=== PATIENT | female | born 1950 | race Caucasian/White ===

== ENCOUNTER 2019-08-16 23:04 | Inpatient (IN) | payer BC, MEDICARE ==
--- NOTE | 2019-08-16 23:32 | ED ---
Psychiatric Complaint - HPI Summary HPI Summary: 68 year old female presents to the ED accompanied by police. THIS IS A LEVEL 5 CAVEAT DUE TO AMS. Per police, police was called after patient threatened suicide by holding a knife to her chest. Patient states that she is not suicidal , just upset. Patient was restrained by her granddaughter's boyfriend, who wrestled the knife out of her hand. Police handcuffed her upon arrival. Per patient, she has never had any prior suicidal attempts. Patient reports homicidal ideation tonight because she was so mad. She has a cough and sore throat, which started several weeks ago after she was intubated. Her granddaughter recently had strep throat. She denies recent fever, chills, or shortness of breath. On 08/08/19, patient had hypertensive encephalopathy, resulting in a seizure and then cardiac arrest. She was intubated until 08/09. PMHx of bipolar disease, arthritis, osteoporosis, hypothyroidism, breast cancer , and emphysema. Patient is a former smoker. She has not drank alcohol for many years. No history of chronic sleep disturbances. Patient lives in a safe home environment, with her daughter. - History Of Current Complaint Chief Complaint: EDMentalHealth Time Seen by Provider: 08/16/19 23:06 Hx Obtained From: Patient, Other: - police Hx From Patient Unobtainable Due To: Altered Mental Status ?: No Onset/Duration: Sudden Onset, Lasting Minutes Severity Initially: Severe Severity Currently: None Character: Manic, Frustrated Aggravating Factor(s): Nothing Associated Signs And Symptoms: Positive: Hostile Has Suicidal: Reports: Thoughts - although she denies them now, Demonstrates Gesture Has Homicidal: Reports: Thoughts - reports wanting to hurt family members - Allergies/Home Medications Allergies/Adverse Reactions: Allergies Allergy/AdvReac Type Severity Reaction Status Date / Time Penicillins Allergy Hives Verified 08/16/19 23:10 Home Medications: Home Medications Acetaminophen [Tylenol] 650 mg PO DAILY 08/17/19 [History Confirmed 08/17/19] Aspirin 81 mg CHEW TAB* [Aspirin Low Dose TAB*] 81 mg PO DAILY 08/17/19 [ History Confirmed 08/17/19] Calcium Carbonate/Vitamin D3 [Calcium 600+D High Potenc] 1 tab PO DAILY [History Confirmed 08/17/19] Diclofenac Sodium EC TAB* [Voltaren EC TAB*] 75 mg PO BID PRN 08/17/19 [History Confirmed 08/17/19] Levothyroxine TAB* [Synthroid TAB*] 175 mcg PO 0600 08/17/19 [History Confirmed 08/17/19] Lisinopril [Zestril] 20 mg PO BID 08/17/19 [History Confirmed 08/17/19] PARoxetine HCL [Paroxetine HCl] 40 mg PO DAILY 08/17/19 [History Confirmed 08/16] hydroCHLOROthiazide [Hydrochlorothiazide] 12.5 mg PO DAILY 08/17/19 [History Confirmed 08/17/19] lamoTRIgine [Lamictal] 25 mg PO BID 08/17/19 [History Confirmed 08/17/19] levETIRAcetam [Keppra] 500 mg PO BID 08/17/19 [History Confirmed 08/17/19] traZODone TAB* [Desyrel TAB*] 50 mg PO BEDTIME 08/17/19 [History Confirmed 08/16] PMH/Surg Hx/FS Hx/Imm Hx Cardiovascular History: Reports: Hx Hypertension - encephalopathy Respiratory History: Reports: Hx Chronic Obstructive Pulmonary Disease (COPD) Musculoskeletal History: Reports: Hx Arthritis, Hx Osteoporosis Psychiatric History: Reports: Hx Bipolar Disorder - Cancer History Cancer Type, Location and Year: Breast cancer Infectious Disease History: No Infectious Disease History: Denies: Traveled Outside the [place] in Last 30 Days - Family History Known Family History: Positive: Unknown - Social History Lives: With Family - With daughter Alcohol Use: None Hx Substance Use: No Substance Use Type: Reports: None Smoking Status (MU): Former Smoker Review of Systems - ROS Summary Review of Systems Summary: No home medications on record. Negative: Fever Positive: Sore Throat Positive: Cough. Negative: Shortness Of Breath Negative: Nausea Positive: Other - SI, HI All Other Systems Reviewed And Are Negative: No Physical Exam - Summary Physical Exam Summary: General: Thin, elderly, disheveled female. Confused. No acute distress. HEENT: Normocephalic, Atraumatic. Eyes: Conjuctiva normal, PERRL. Ears: TMs within normal limits. Nares: (-) discharge, (-) erythema. Oropharynx: Clear, mucous membranes moist, (-) exudates. Neck: Soft, FROM, (-) lymphadenopathy, (-) thyromegaly, (-) JVD. Cardiovascular: Normal sinus rhythm, (-) murmur. Lungs: Clear to auscultation bilaterally (-) wheezes, (-) rales, (-) rhonchi. Abdomen: Soft, non-tender, non-distended, (-) organomegaly, normal bowel sounds. Back: (-) CVA tenderness Extremities: No edema. Skin: Warm, dry, (-) rash. Neuro: Alert and oriented x3, no focal deficits. Psychiatric: Tangential thinking. Delusional Odd affect. Triage Information Reviewed: Yes Vital Signs On Initial Exam: Initial Vitals Temp Pulse Resp BP Pulse Ox 97.6 F 95 20 140/91 97 08/16/19 23:06 08/16/19 23:06 08/16/19 23:06 08/16/19 23:06 08/16/19 23:06 Vital Signs Reviewed: Yes Completion Of Physical Exam Limited Due To: Level 5 Procedures - Sedation Patient Received Moderate/Deep Sedation with Procedure: No Diagnostics - Vital Signs Vital Signs Temp Pulse Resp BP Pulse Ox 08/16/19 23:06 97.6 F 95 20 140/91 97 - Laboratory Result Diagrams: 08/16/19 23:51 08/16/19 23:51 Lab Statement: Any lab studies that have been ordered have been reviewed, and results considered in the medical decision making process. Course/Dx - Course Course Of Treatment: 68-year-old female brought in by police for mental health evaluation. Patient apparently was at her daughter's home and became agitated. She states she was fighting with her daughter. Police state she held a knife up to her chest. Family was able to get that away from her. When police arrived she refused to go with ambulance for evaluation of the hospital. Police had to handcuff her to get her into the car. Patient appears very agitated and manic upon arrival. Pressured speech. Disorganized. Individual thinking. Somewhat delusional. Patient admits she hasn't been sleeping. Admits she hasn't been taking her medications correctly. Patient's history is also significant for recent admission at [facility]. According to her records that were requested, patient had hypertensive encephalopathy that progressed into seizure. Had a cardiac arrest. Had CPR and was resuscitated successfully. Patient's blood pressure here initially under control then became higher later as she became more agitated and manic. Patient ended up becoming quite dangerous to herself and others. She refused to take any by mouth medications for blood pressure or anxiety. Was unable to be redirected. Received Benadryl, Haldol, Ativan for chemical restraint. Unable workup her TSH is mildly elevated. Otherwise no significant abnormalities. Blood pressure well-controlled after being medicated. Workup demonstrated slightly elevated thyroid. Otherwise no significant abnormalities. Patient seen by mental health for evaluation. Discussed with psychiatry and patient will be admitted to behavioral science unit. - Differential Dx/Clinical Impression Provider Diagnosis: Suicidal ideation - Physician Notifications Discussed Care Of Patient With: Jomar Rosenbaum - Psych Time Discussed With Above Provider: 01:34 Instructed by Provider To: Admit As Inpatient - Dr. Rosenbaum recomends admission for evaluation in the morning. Admit/Transition Orders Completed By ED Provider: Yes Discharge ED - Sign-Out/Discharge Documenting (check all that apply): Patient Departure - admit - Discharge Plan Condition: Stable Disposition: ADMITTED TO [facility] Referrals: Aziza Bar PA [Primary Care Provider] - - Billing Disposition and Condition Condition: STABLE Disposition: Admitted to [facility] - Attestation Statements Document Initiated by Sofi: Yes Documenting Scribe: Gavin Lucero Provider For Whom Sofi is Documenting (Include Credential): Dr. Kathleen Cullen Scribdolores Attestation: Gavin Flores , scribed for Dr. Kathleen Cullen on 08/17/19 at 0617. Scribe Documentation Reviewed: Yes Provider Attestation: The documentation as recorded by the Gavin kearney accurately reflects the service I personally performed and the decisions made by me, Dr. Kathleen Cullen Status of Scribe Document: Viewed - Assessment for Patient Restraint Face to Face Encounter Date: 08/17/19 Face to Face Encounter Time: 03:59 Evaluation of the Patient's Immediate Situation: Patient is loud and aggressive. Patient is yelling, swearing, and being uncooperative. After medication, the patient is sleeping. Patient's Reaction to Intervention: Multiple attempts to deescalate were unsuccessful. Patient responded well to sedation, chemical restraint. Patient's Medication and Behavioral Condition: She ended up receiving Benadryl, Ativan, Haldol IM after arrival to the Emergency Department. Patient is resting comfortably. Evaluate Need for Continued Restraint: Terminate - At 04:20 on 08/17/19
[2019-08-17 00:07] LABS: ABS Basophils 0.2 10^3/ul (0-0.2); ABS Eosinophils 0.2 10^3/ul (0-0.6); ABS Lymphocytes 1.4 10^3/ul (1.0-4.8); ABS Monocytes 0.8 10^3/ul (0-0.8); ABS Neutrophils 4.2 10^3/ul (1.5-7.7); Eosinophil % 3.7 %; Hematocrit 38 % (35-47); Hemoglobin 12.7 g/dL (12.0-16.0); Lymphocyte % 20.1 %; Mean Corpuscular HGB Conc 33 g/dL (31-36); Mean Corpuscular Hemoglobin 29 pg (27-31); Mean Corpuscular Volume 88 fL (80-97); Mean Platelet Volume 7.5 fL (7.4-10.4); Nucleated Red Blood Cells % 0.1; Platelet Count 335 10^3/uL (150-450); Red Blood Count 4.33 10^6 /uL (3.70-4.87); Red Cell Distribution Width 13 % (10-15); White Blood Count 6.8 10^3/uL (3.5-10.8)
[2019-08-17 00:16] LABS: Urine Appearance Clear; Urine Bilirubin Negative (Negative); Urine Blood 1+ (Negative); Urine Color Straw; Urine Glucose Negative (Negative); Urine Ketones Negative (Negative); Urine Nitrite Negative (Negative); Urine Protein Negative (Negative); Urine Specific Gravity 1.008 (1.010-1.030); Urine Urobilinogen Negative (Negative)
[2019-08-17 00:19] LABS: Urine Bacteria Absent (Absent); Urine Benzodiazepine Screen None Detected (None Detect); Urine Opiates Screen None Detected (None Detect); Urine Red Blood Cell Trace(0-2/hpf) (Absent); Urine White Blood Cell Trace(0-5/hpf) (Absent)
[2019-08-17 00:23] LABS: ALT 12 U/L (7-52); AST 14 U/L (13-39); Acetaminophen < 15 mcg/mL; Albumin 4.3 g/dL (3.2-5.2); Albumin/Globulin Ratio 1.3 (1-3); Alcohol < 10 mg/dL (<10); Alkaline Phosphatase 58 U/L (34-104); Anion Gap 8 mmol/L (2-11); BUN/Creatinine Ratio 17.3 (8-20); Blood Urea Nitrogen 18 mg/dL (6-24); CO2 Carbon Dioxide 28 mmol/L (22-32); Chloride 102 mmol/L (101-111); EGFR African American 63.4 (>60); EGFR Non-African American 52.4 (>60); Globulin 3.4 g/dL (2-4); Glucose 108 mg/dL (70-100); Potassium 4.1 mmol/L (3.5-5.0); Salicylate < 2.50 mg/dL (<30); Sodium 138 mmol/L (135-145); Total Protein 7.7 g/dL (6.4-8.9)
[2019-08-17 00:38] LABS: TSH (Thyroid Stimulating Horm) 6.58 mcIU/mL (0.34-5.60)
[2019-08-17] MEDS ORDERED: traZODone TAB* 50 MG TAB PO ONE (01:49)
[2019-08-17] MEDS ORDERED: Metoprolol Succinate XL TAB* 50 MG PO ONE (03:11)
[2019-08-17] MEDS ORDERED: LORazepam INJ* 2 MG/ML 1 ML VIAL ONE ×2 (03:22→03:29)
[2019-08-17] MEDS ORDERED: diPHENhydraMINE IV* 50 MG/ML 1 ml VIAL (BENADRYL) ONE (03:29)
[2019-08-17] MEDS ORDERED: Haloperidol INJ IV/IM* 5 MG/ML AMP ONE (03:29)
[2019-08-17] MEDS ORDERED: Al Hydrox/Mg Hydrox/Simet LIQ* 30 ML UDC PO PRN (12:29)
[2019-08-17] MEDS ORDERED: Acetaminophen TAB* 325 MG PO ONE (19:43)
[2019-08-17] MEDS: levETIRAcetam TAB* 500 MG PO SCH (20:26)
[2019-08-17] MEDS: lamoTRIgine TAB(*) 25 MG PO SCH (20:27)
[2019-08-17] MEDS: Lisinopril TAB* 10 MG PO SCH (20:27)
[2019-08-17] MEDS: Aspirin 81 mg CHEW TAB* 81 MG TAB.CHEW PO SCH (20:53)
[2019-08-17] MEDS: Calcium/Vitamin D TAB 250/125* TAB PO SCH (20:54)
[2019-08-17] MEDS: Diclofenac Sodium EC TAB* 25 MG PO SCH (20:55)
[2019-08-17] MEDS: PARoxetine HCL TAB* 40 MG PO SCH (20:56)
[2019-08-17] MEDS: Levothyroxine TAB* 175 MCG TAB PO SCH (20:56)
[2019-08-17] MEDS: Hydrochlorothiazide TAB* 25 MG PO SCH (21:09)
[2019-08-18] MEDS: Lisinopril TAB* 10 MG PO SCH ×3 (00:30→23:09)
[2019-08-18] MEDS: lamoTRIgine TAB(*) 25 MG PO SCH ×2 (00:30→09:07)
[2019-08-18] MEDS: levETIRAcetam TAB* 500 MG PO SCH ×2 (00:30→09:07)
[2019-08-18] MEDS: Calcium/Vitamin D TAB 250/125* TAB PO SCH ×4 (00:30→23:09)
[2019-08-18] MEDS: Diclofenac Sodium EC TAB* 25 MG PO SCH (09:06)
[2019-08-18] MEDS: Levothyroxine TAB* 175 MCG TAB PO SCH (09:06)
[2019-08-18] MEDS: Hydrochlorothiazide TAB* 25 MG PO SCH (09:07)
[2019-08-18] MEDS: Aspirin 81 mg CHEW TAB* 81 MG TAB.CHEW PO SCH (09:07)
[2019-08-18] MEDS: PARoxetine HCL TAB* 40 MG PO SCH (09:07)
[2019-08-18] MEDS: Vitamin THERAPEUTIC TAB PO SCH (09:08)
--- NOTE | 2019-08-18 10:08 | HP ---
H&P (Free Text) History and Physical: Justification for admission: Immediate Safety. CC " I have bipolar disorder" The patient was brought to [facility] by police after her family called 911 following a suicide attempt where she held a knife to her chest and was interrupted by a family member. She was treated at [facility] and had cardiac arrest was intubated and sent to the ICU and had to be brought back to life. While at [facility] she was found to have hypertensive encephalopathy and had a seizure and was discharged on August 12. When she returned home to live with her daughter and showed changes in her behavior and had a interrupted suicide attempt with a kitchen knife. Her family reported that her lithium levels were found to be high and provider advised that she stop taking lithium for 2 days but she discontinued lithum altogether and started lamotrigine for bipolar disorder on July 30. Since that time the patient has been showing signs of noe. Patient was started on Keppra for having a one time seizure at [facility]. She denied access to firearms or stockpiles of medications. She reported decreased sleep and no changes to her appetite The patient denied homicidal ideation intent or plan. The patient denied auditory and/ or visual hallucinations. Depression She reported feeling depressed with feelings of hopelessness , and worthlessness. She reported interruption of sleep , and decreased concentration. Bipolar She reported having a manic episode recently but is unsure when that was. She describes having a manic episode to be having a lot of energy and moving around a lot. Anxiety Denied having symptoms of anxiety such as having times where heart feels that it is beating out of chest , sweaty palms, or shallow breathing. Denied having uncomfortable or intrusive thoughts. Denied feeling restless, high strung, or worrying too much most of the time. Psychosis Does not endorse hearing things that other people do not hear or seeing things other people do not see. Denied feeling that TV is making references. Denied feeling that people are spying , following , or reading their thoughts. Phobias: Patient denied having excessive fear of a particular thing or situation. Eating disorders: Patient denied having excessive eating habits or feelings of guilt after eating. Denied repeated episodes of self induced vomiting after eating. PTSD Denied flashbacks, nightmares and avoidance of a prior traumatic event. PAST PSYCHIATRIC HISTORY: Prior Diagnosis : Bipolar I disorder History of past Psychiatric Hospitalizations: Last prior psychiatric admission were in 1985, 1986 History of past suicide/homicide attempts : Recent suicide attempt, denied repeated self injurious behavior. Denied history of violence. Outpatient follow-up: Hank JONES [phone] Medications: Past trials of medications include lithium, paxil 40mg daily lamotrigine 25mg BID. Guardianship: None. FAMILY HISTORY: - Suicide: Nephew by suicide. - Mental illness: Nephew Depression - Substance abuse: Mother Alcohol abuse SUBSTANCE ABUSE HISTORY: - EtOH: Denied recent use. Quit at age 24. No associated legal issues, blackouts , seizures, DTs or past hospitalizations due to alcohol. - Tobacco: Smokes 2 ppd - Cannabis: Denied - Heroin: Denied - Cocaine: Denied - Substance abuse treatment: Denied past substance abuse treatment SOCIAL HISTORY: - Denied a history of childhood physical and or sexual abuse Born in [facility] and raised by both parents. 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 - Relationship: with 3 daughters - Legal history: Denied - service history: Denied PAST MEDICAL HISTORY: s/p hypertensive encephalopathy, s/p cardiac arrest, Osteoporosis , hypothyroidism, history of breast cancer, emphysema - Allergies: Penicillin Physical Exam: Please see ED note Mental Status Exam on Admission APPEARANCE : 68 year old female who appears stated age. Patient is not malodorous, and appears to have fair hygiene and grooming. BEHAVIOR: Cooperative , calm EYE CONTACT: Fair PSYCHOMOTOR ACTIVITY: No psychomotor agitation or retardation. MOVEMENTS: No abnormal movements observed. SPEECH : Normal rate, rhythm, volume and tone. MOOD : "Okay " AFFECT : Type is depressed Range is restricted Mood Congruent THOUGHT PROCESS: thought blocking THOUGHT CONTENT: no delusions, obsessions, phobias or preoccupations. PERCEPTION: No current auditory or visual hallucinations. Doesnt appear to be responding to internal cues. No evidence of depersonalization , de-realization, or illusions SUICIDALITY suicidal ideation HOMICIDALITY Denied homicidal ideation, intent or plan. Insight/judgment: Poor insight and judgment ORIENTATION: Oriented to self, location, and time. Diagnosis on Admission: Bipolar I disorder, current depressive episode Assessment: 68 year old Female with a history of Bipolar I disorder with a recent interrupted suicide attempt currently being treated on the BSU. Plan #Admit to B[facility], Q15 minute observation. Start regular diet. Encourage participation in group therapy and psychoeducation #Patient evaluated in ED and was determined by the emergency room Physician to be medically fit for admission to the BSU. # Justification for Admission: For immediate safety per outlined in the [facility] Hygiene Code. # The patient requires psychiatric inpatient admission at this time to assure safety, receive treatment and work toward stabilization. # Labs ordered: CBC, CMP, UDS, TSH, HBA1c, TSH, Toxicology screen, Urine analysis, and lipid profile. # Plan to monitor for metabolic changes by weight, HBA1c, glucose, and lipid panel # EKG ordered # Obtained collateral information from her daughter who confirmed no access to firearms. # Collaboration with Chisel Grinder Dhara Horan # Neurology evaluated the patient and recommended for Keppra to be discontinued # Medicine consult placed for recent [place] and management of medical issues # Start lithium 150mg BID # [place]amo[place] level < 0.10 # Decrease lamotrogine to 25mg daily # Patient was stabilized on lithium for 30 years. Patient on other medications that can increase risk for lithium toxicity. Will this consideration will plan to monitor levels, encourage hydration. Patient and patients family in agreement with the plan. Tobacco use disorder: nicotine supplement offered and put in place. Tentative Discharge: Pending hospital course and response to treatment The risks, benefits, and alternative treatment options were discussed as well as the risks of refusing treatment. After this discussion and an acknowledgement of this understanding was made. A risk/ benefit assessment of treatment was considered and discussed with the patient. When comparing the risks of treatment with the dangers of not receiving treatment, the benefits of treatment outweigh the treatment risks at this time. Risks of allergy, suicidal ideation, behavioral changes, dystonia, electrolyte imbalances, movement disorders, cardiac conduction changes, serotonin syndrome, metabolic risks were among some of the risks discussed. Acetaminophen (Tylenol Tab*) 650 mg PO Q6H PRN PRN Reason: PAIN - MILD Al Hydrox/Mg Hydrox/Simethicone (Maalox Plus*) 30 ml PO Q4H PRN PRN Reason: INDIGESTION Aspirin (Aspirin 81 Mg Chew Tab*) 81 mg PO DAILY [facility] Last Admin: 08/18/19 09:07 Dose: 81 mg Calcium/Vitamin D (Oscal D Tab 250/125*) 1 tab PO TID [facility] Last Admin: 08/18/19 09:07 Dose: 1 tab Diclofenac Sodium (Voltaren Ec Tab*) 75 mg PO 0730 [facility] Last Admin: 08/18/19 09:06 Dose: 75 mg Hydrochlorothiazide (Hydrodiuril Tab*) 12.5 mg PO QAM [facility] Last Admin: 08/18/19 09:07 Dose: 12.5 mg Lamotrigine (Lamictal Tab(*)) 25 mg PO BID [facility] Last Admin: 08/18/19 09:07 Dose: 25 mg Levothyroxine Sodium (Synthroid Tab*) 175 mcg PO 0600 [facility] Last Admin: 08/18/19 09:06 Dose: 175 mcg Lisinopril (Prinivil Tab*) 20 mg PO BID [facility] Last Admin: 08/18/19 09:07 Dose: 20 mg Multivitamins (Theragran Tab*) 1 tab PO DAILY [facility] Last Admin: 08/18/19 09:08 Dose: 1 tab Nicotine (Nicotine Patch 21 Mg/24 Hr*) 1 patch TRANSDERM DAILY@0800 [facility] Paroxetine HCl (Paxil Tab*) 40 mg PO QAM [facility] Last Admin: 08/18/19 09:07 Dose: 40 mg Pharmacy Profile Note (Nicotine Patch Removal Note*) 1 note FOLLOW UP 0600 [facility] 08/16/19 08/16/19 08/16/19 23:40 23:40 23:51 WBC 6.8 RBC 4.33 Hgb 12.7 Hct 38 MCV 88 MCH 29 MCHC 33 RDW 13 Plt Count 335 MPV 7.5 Neut % (Auto) 62.5 Lymph % (Auto) 20.1 [place] % (Auto) 11.1 Eos % (Auto) 3.7 Baso % (Auto) 2.6 Absolute Neuts (auto) 4.2 Absolute Lymphs (auto) 1.4 Absolute Monos (auto) 0.8 Absolute Eos (auto) 0.2 Absolute Basos (auto) 0.2 Absolute Nucleated RBC 0.0 Nucleated RBC % 0.1 Sodium Potassium Chloride Carbon Dioxide Anion Gap BUN Creatinine Est GFR ( Amer) Est GFR (Non-Af Amer) BUN/Creatinine Ratio Glucose Calcium Total Bilirubin AST ALT Alkaline Phosphatase Total Protein Albumin Globulin Albumin/Globulin Ratio TSH Free T4 Urine Color Straw Urine Appearance Clear Urine pH 7.0 Ur Specific [place] 1.008 L Urine Protein Negative Urine Ketones Negative Urine Blood 1+ A Urine Nitrate Negative Urine Bilirubin Negative Urine Urobilinogen Negative Ur Leukocyte Esterase Negative Urine WBC (Auto) Trace(0-5/hpf) Urine RBC (Auto) Trace(0-2/hpf) Urine Bacteria Absent Urine Glucose Negative Salicylates Urine Opiates Screen None detected Acetaminophen Ur Barbiturates Screen None detected Ur Phencyclidine Scrn None detected Ur Amphetamines Screen None detected U Benzodiazepines Scrn None detected [place] Urine Cocaine Screen None detected U Cannabinoids Screen None detected Serum Alcohol 08/16/19 23:51 WBC RBC Hgb Hct MCV MCH MCHC RDW Plt Count MPV Neut % (Auto) Lymph % (Auto) [place] % (Auto) Eos % (Auto) Baso % (Auto) Absolute Neuts (auto) Absolute Lymphs (auto) Absolute Monos (auto) Absolute Eos (auto) Absolute Basos (auto) Absolute Nucleated RBC Nucleated RBC % Sodium 138 Potassium 4.1 Chloride 102 Carbon Dioxide 28 Anion Gap 8 BUN 18 Creatinine 1.04 H Est GFR ( Amer) 63.4 Est GFR (Non-Af Amer) 52.4 BUN/Creatinine Ratio 17.3 Glucose 108 H Calcium 11.0 H Total Bilirubin 0.30 AST 14 ALT 12 Alkaline Phosphatase 58 Total Protein 7.7 Albumin 4.3 Globulin 3.4 Albumin/Globulin Ratio 1.3 TSH 6.58 H Free T4 1.14 H Urine Color Urine Appearance Urine pH Ur Specific [place] Urine Protein Urine Ketones Urine Blood Urine Nitrate Urine Bilirubin Urine Urobilinogen Ur Leukocyte Esterase Urine WBC (Auto) Urine RBC (Auto) Urine Bacteria Urine Glucose Salicylates < 2.50 Urine Opiates Screen Acetaminophen < 15 Ur Barbiturates Screen Ur Phencyclidine Scrn Ur Amphetamines Screen U Benzodiazepines Scrn [place] < 0.10 L Urine Cocaine Screen U Cannabinoids Screen Serum Alcohol < 10
[2019-08-18 10:28] LABS: Lithium < 0.10 mmol/L (0.6-1.2)
[2019-08-18] MEDS ORDERED: Nicotine PATCH 21 MG/24 HR* PATCH TRANSDERM SCH (13:00)
[2019-08-18 13:29] LABS: Free T4 1.14 ng/dL (0.61-1.12)
[2019-08-18] MEDS ORDERED: Nicotine Lozenge* mini 4 MG LOZNG.MINI MT PRN (14:30)
--- NOTE | 2019-08-18 14:58 | CONSULT ---
Consult Consult: Neurology Inpatient Consult Note Date of service: 08/18/2019 Reason for consult: Neurology was consulted by Dr. Gallagher to assess the need for levetirecetam. THe history was obtained by the patient, and the majority of it was from the patient's daughter Chio via telephone. Chief complaint: "I have no complaint" History of Present Illness: Ashlee Paul is a 68-year-old female who has a long standing history of bipolar disorder. The patient is in the in-patient psychiatric unit for evaluation and treatment of her recent suicide ideation. [place] was discontinued in early July. She had pneumonia, in the process of diagnosing pneumonia. She was told that her lithium level is too high, and was instructed to hold the lithium for two days. She stopped taking it completely because there was some communication problem. The patient is hard of hearing and did not hear the instructions right. She wanted to stay out of lithium because of arthritis pain. The pain is better without lithium. The discussion with the primary was to keep her off lithium until she develops psychiatric symptoms. She was starting to get anxious and she went back to see her PCP and was put on lamotrigine on the . She was progressively getting more confused and manic. On the , she could not sit down. She was walking in and out of the house. She would smoke a half a cigarette then go back in the house and within seconds she wants to smoke another. She was going to the bathroom constantly. She had trouble with her memory. She asked if she had any grandchildren and how old they were. She always knew her grandchildren. On a normal day, she knew her grandchildren's hour. She was taken to [facility] on 08/08/2019 to assess her confusion. Her BP was recorded and it was 220/100 mmHg. She was sitting at the edge of the bed , complained of a headache, then suddenly developed a generalized seizure. She did not fall or hit her head. She screamed before the seizure. She had the left hand on the front part of her chest and the right arm is extended upwards. She was looking towards the left. Her body was jerking and shaking. Her eyes were rolling to the back of the head. The seizure lasted 60 seconds. Her heart stopped. She received a short course of CPR. She was resuscitated within 2 minutes. She was then flown from [place] to [facility] and then she was reported to have another seizure en route. They did a CT scan at [place], then again at [facility], and then did an EEG on 08/09/3029. All those testing came back negative. She was intubated on the , and extubated on the . She was evaluated by Neurology at [facility] and was put on Keppra 500 mg twice daily for three months. The patient was discharged . She went home with her daughter and . She was happy to be home. She was still confused. The family was informed that the confusion and memory impairment may last for a few days or weeks. By Saturday, her BP was way too high. Her PCP prescribed HCTZ, in addition to lisinopril. The patient was telling her grandchildren that she and saw her parents. She went to [facility]. Chio had suggested that she should come to live with her for the next few days, because it was too much for her daughter and grandchildren. When she moved with Chio, the patient was confused. She was in the hospital and talking about how she had a bad divorce with her and the separation she went through with previous boyfriends. She is jumping from one topic to the next. She broke the microwave at Chio's house. She was opening the tool maker bench and looking in it. She cleaned the oven in the middle of the night. She was getting angry at [place] for no reason. She told Chio to "F Off." She would then tell Chio that she's the best daughter she has ever had. When Chio mentioned that she should go to the hospital and be started on lithium, and that's when the patient became frustrated. Then she said " I will kill myself if I ever get in the car with you." The patient became angry and walked towards the kitchen and grabbed a knife. She pointed it towards her chest. Chio ran out there and immediately took it away from her. The [employer] office was called. She fought the officer, and told the officer "i don't care I'm old I will take you down." Seizure risk factors: She has no history of seizures. She has no history of encephalitis or meningitis. There is no history of head injury. She has no family history of epilepsy. Labs, Imaging and Other Diagnostics: Vitamin B12: 304 TSH: 6.58 Free T4: 1.14 IMAGING: - EEG on 08/10/2019 that was read as limited study due to bad electrode from the O2 channel; however, no definite evidence of seizure or any evidence of focal abnormality noted at the present time. Past Medical History: bipolar 1 disorder, hypertension Family History: No family history of stroke or seizures. 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 She denied any recent alcohol use. Medications: Acetaminophen [Tylenol] 650 mg PO DAILY 08/17/19 [History Confirmed 08/17/19] Aspirin 81 mg CHEW TAB* [Aspirin Low Dose TAB*] 81 mg PO DAILY 08/17/19 [ History Confirmed 08/17/19] Calcium Carbonate/Vitamin D3 [Calcium 600+D High [place]enc] 1 tab PO DAILY [History Confirmed 08/17/19] Diclofenac Sodium EC TAB* [Voltaren EC TAB*] 75 mg PO BID PRN 08/17/19 [History Confirmed 08/17/19] Levothyroxine TAB* [Synthroid TAB*] 175 mcg PO 0600 08/17/19 [History Confirmed 08/17/19] Lisinopril [Zestril] 20 mg PO BID 08/17/19 [History Confirmed 08/17/19] PARoxetine HCL [Paroxetine HCl] 40 mg PO DAILY 08/17/19 [History Confirmed 08/16] hydroCHLOROthiazide [Hydrochlorothiazide] 12.5 mg PO DAILY 08/17/19 [History Confirmed 08/17/19] lamoTRIgine [Lamictal] 25 mg PO BID 08/17/19 [History Confirmed 08/17/19] levETIRAcetam [Keppra] 500 mg PO BID 08/17/19 [History Confirmed 08/17/19] traZODone TAB* [Desyrel TAB*] 50 mg PO BEDTIME 08/17/19 [History Confirmed 08/16] Allergies Penicillins Allergy (Verified 08/16/19 23:10) Hives Review of Systems: A 14-point ROS was obtained and otherwise negative except for what was mentioned in the HPI. Physical Exam: Vital Signs - 12 hr Temp Pulse Resp BP Pulse Ox 08/18/19 10:06 98.6 F 81 16 160/76 100 General: well nourished, well developed. Alert, cooperative, no apparent distress, appears stated age. Head: normocephalic, without obvious abnormality Eyes: conjunctivae/corneas clear Neck: supple, symmetrical. No carotid bruit. No lymphadenopathy. Lungs: clear to auscultation bilaterally, non-labored CV: regular rhythm, S1, S2 normal, radial pulses palpable Extremities: normal range of motion with no cyanosis. Skin: no skin lesions or lacerations Psych:restless but pleasant. Neurological examination: Mental status: awake; alert and oriented to person, place, time, & general circumstances; speech & language including expression, naming, repetition, & comprehension was assessed and found to be normal. Cranial nerves: I: not tested II, III, IV, : normal confrontation B/L, Pupils midrange and reactive to light , normal consensual response; extraocular muscles are intact; no ptosis; no conjugate or asymmetrical nystagmus V /2/3: sensation is intact on forehead, cheeks, and jaw region VII: no facial droop; facial symmetry while smiling & wrinkling of forehead; tight lid closure VIII: able to hear throughout the history process IX & X: symmetric palatal elevation XI: normal strength against resistance XII: tongue is symmetrical & midline with no atrophy or fasciculations Motor (R/L): no abnormal movements, no pronator drift. Normal bulk and tone throughout. No fasciculations. Neck extension 5. Shoulder ROM is full. Shoulder abduction 5/5. Elbow flexion 5/5, extension 5/5. Wrist flexion 5/5, extension 5/5. Finger flexion 5/5, extension 5/5, abduction 5/5. Hip flexion 5/5, abduction 5/5. Knee flexion 5/5, extension 5/5. Ankle dorsiflexion 5/5, plantarflexion 5/5. Great toe extension 5/5. Reflexes R L Brachioradialis 2+ 2+ Biceps 2+ 2+ Triceps 2+ 2+ Patella 2+ 2+ Ankle 2+ 2+ Plantar flexor flexor Sensation is intact to light touch throughout. Coordination: normal finger to nose and rapid alternating movements. Gait & Station: narrow based; normal stance and gait. No ataxia. Assessment: 1. Suicide ideation, may have been triggered by levetirecetam therapy. 2. Provoked seizures. 3. Recent PEA arrest requiring resuscitation. She recovered well. This was induced by the seizure that was most likely provoked by uncontrolled hypertensive emergency. Recommendations: - MRI brain without contrast to evaluate for early signs of hypoxic-ischemic brain injury or mesial temporal sclerosis. - EEG to evaluate for epileptiform abnormalities. - Discontinue levetiracetam due to the concerns of exacerbation of her psychiatric problems. The risk of levetirecetam outweigh the benefit at this point since the patient most likely had a provoked seizure. - If her seizures reoccur, or if there are discharges on EEG, I recommend loading with Depacon 1,000 mg IV x 1 then continue a dose of 500 mg PO twice daily. - Driving restriction until cleared by a neurologist/PCP. I will follow-up with the results. Discussed the above recommendations with Dr. Gallagher. Nury Martinez MD Date: * Time: *
[2019-08-18] MEDS ORDERED: Albuterol HFA INHALER* 8 gm MDI INH PRN (16:13)
--- NOTE | 2019-08-18 18:15 | CONS ---
CONSULTATION REPORT: DATE OF CONSULT: 08/18/19 ATTENDING PHYSICIAN WHILE IN THE HOSPITAL: Dr. Keli Donaldson (dictated by ROBERT Tovar). REQUESTING PHYSICIAN: Dr. Gallagher. REASON FOR CONSULT: Comanagement of chronic medical conditions. HISTORY OF PRESENT ILLNESS: Ashlee Woodward is a 68-year-old white female with past medical history significant for hypothyroidism, hypertension, COPD, bipolar disorder, who had a recent complicated hospitalization at [facility] and she was discharged on 08/13/19 in a setting of cardiac arrest. The patient presented to [facility] due to suicidal threats. It appears that her lithium was stopped some time in the recent weeks and she was continued on antidepressants which possibly contributed to noe and suicide attempt. Regarding her recent complicated hospitalization, the patient presented to [place] ED on 08/08/19 and was having tonic-clonic seizures that lead to a PEA arrest. She was intubated and sent to [facility]. It appears that the etiology of tonic-clonic seizures was hypertensive encephalopathy. It appears she was extubated either on 08/10/19 or 08/11/19 based on progress notes obtained from [facility] and she was then transitioned to the medical floor and discharged to home on 08/13/19. She has been living with her daughter, Chio, who helps her with her medications and she tells me that she has been taking her new seizure medications. She does tell me that she has been having left- sided chest pressure intermittently for quite some time and she has been told by providers in the past this is related to anxiety. She additionally occasionally has some aching on the tops of her arms not associated with chest pressure. She additionally had headache earlier today and Tylenol helped. She denies abdominal pain, nausea, vomiting, diarrhea, visual changes, blurred vision, scotoma, fever, chills, shortness of breath or cough. I do see in the medical record obtained from [facility] that the patient had an echocardiogram during her hospitalization earlier this month that showed an echocardiogram with an EF of 65 to 70%, which appears to represent LVH. PAST MEDICAL HISTORY: 1. Tonic-clonic seizure in the setting of hypertensive encephalopathy. 2. Hypothyroidism. 3. Hypertension. 4. Osteoporosis. 5. COPD. 6. Bipolar disorder. 7. History of PEA cardiac arrest in the setting of status epilepticus on . PAST SURGICAL HISTORY: 1. Lumpectomy of the breast at age 17. 2. Tonsillectomy. 3. Partial thyroidectomy. CURRENT ACTIVE MEDICATIONS: 1. Tylenol 650 mg p.o. q.6 hours p.r.n. pain. 2. Maalox 30 mL p.o. q.4 hours p.r.n. indigestion. 3. Aspirin 81 mg p.o. daily. 4. Calcium with vitamin D 1 tab p.o. t.i.d. 5. Diclofenac 75 mg p.o. daily. 6. Hydrochlorothiazide 12.5 mg p.o. daily. 7. Lamictal 25 mg p.o. daily. 8. Keppra 500 mg p.o. b.i.d. 9. Levothyroxine 175 mcg p.o. daily. 10. Lisinopril 20 mg p.o. b.i.d. 11. Doral 150 mg p.o. b.i.d. 12. Multivitamin 1 tab p.o. daily. 13. Nicotine lozenges 4 mg lozenge q.2 hours p.r.n. cravings. 14. Paroxetine 40 mg p.o. q.a.m. ALLERGIES: Reaction of hives to PENICILLINS. FAMILY HISTORY: Her father at age 84 due to CVA. Mother at age 84 due to "heart problems." SOCIAL HISTORY: The patient lives with her daughter, Chio, as well as her daughter's boyfriend, her 2 granddaughters, and one of her granddaughter's boyfriend. 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 She is . She has 2 adult children. She quit smoking approximately 2 weeks ago. She has 45 years of smoking history, approximately 1 pack per day. She denies alcohol use and drug use. REVIEW OF SYSTEMS: An 11-point review of systems was completed. All pertinent positives and negatives are above in the HPI. Other systems are negative. PHYSICAL EXAM: Vital Signs: Temperature 98.6, pulse rate 81, respiratory rate 16, oxygen saturation 100% on room air, blood pressure 160/76. General: Thin elderly white female, lying in the hospital bed, appearing comfortable, in no acute distress. Eyes: PERRLA. Sclerae anicteric. ENT: Mucous membranes moist. Lungs: Clear to auscultation throughout. Cardio: Regular rate and rhythm without murmurs, rubs, or gallops. Abdomen: Soft, nontender, nondistended. Extremities: No clubbing, cyanosis or edema. Neuro: The patient is alert and oriented x3. No focal deficits. Answers all questions appropriately. PERTINENT STUDIES/LAB DATA: White blood cell count 6.8, hemoglobin 12.7, hematocrit 38, platelet count 335. Sodium 138, potassium 4.1, chloride 102, carbon dioxide 28, anion gap 8, BUN 18, creatinine 1.04, calcium 11, TSH 6.58. Urinalysis unremarkable. UDS unremarkable. ASSESSMENT AND PLAN: Ashlee Woodward is a 68-year-old white female with past medical history significant for history of recent seizure in the setting of hypertensive encephalopathy resulting in PEA arrest, hypothyroidism, hypertension, chronic obstructive pulmonary disease, and bipolar disorder, who presents to [facility] due to suicide attempt and is inpatient on behavioral services unit. Hospital Medicine has been consulted for comanagement of her medical conditions. 1. New seizure disorder in the setting of hypertensive encephalopathy which resulted in PEA arrest. The patient had a recent complicated hospitalization related to this. The discharge summary and some progress notes have been obtained, but I am putting an order in to request progress notes from the dates of 08/11/19 to 08/13/19. I am checking Keppra and Lamictal level to ensure they are therapeutic. Otherwise, she seems stable and I have no concern for subclinical seizure at this time. 2. Hypertension. The patient's blood pressure was controlled yesterday but is minimally elevated today. I am increasing the frequency of her vital sign checks to twice a day and please repeat the blood pressure reading with a manual blood pressure if blood pressure is elevated. I will continue her hydrochlorothiazide and lisinopril as is, but perhaps her hydrochlorothiazide should be increased if she does have continuing hypertension, especially considering her recent complicated hospitalization likely as a result of her poor hypertension control. 3. Hypothyroidism. The patient's TSH is elevated. Her free T4 is not relevant diagnostically considering she takes levothyroxine. I am going to increase her home dose from 175 mcg to 200 mcg. TSH should be followed up in 4 to 6 weeks. I question if perhaps this was contributory to her presenting suicide attempts and behavior. 4. Chronic obstructive pulmonary disease. The patient has no signs of acute exacerbation. She does not take any medication for this at home. I will order p.r.n. albuterol inhaler for shortness of breath or wheezing. 5. Bipolar disorder. Management per primary psychiatry team. 6. Disposition: Per primary psychiatry team. TIME SPENT: Approximately 50 minutes was spent on this consult, approximately half of this time was spent at bedside evaluating the patient and discussing the plan of care Thank you for involving us in the care of this patient. We will follow along as needed. ROBERT TOVAR [id number]/[facility] #: [id number] GRETCHEN
[2019-08-18] MEDS ORDERED: levETIRAcetam TAB* 500 MG PO SCH (21:00)
[2019-08-18] MEDS: Lithium Carbonate CAP 150 MG ** CAPSULE PO SCH (23:09)
[2019-08-19] MEDS ORDERED: Nicotine Patch Removal NOTE FOLLOW UP SCH (06:00)
[2019-08-19] MEDS: Levothyroxine TAB* 100 MCG TAB PO SCH (06:07)
[2019-08-19] MEDS: Acetaminophen TAB* 325 MG PO PRN (06:08)
[2019-08-19 08:33] LABS: HDL Cholesterol 43.7 mg/dL
[2019-08-19] MEDS: Diclofenac Sodium EC TAB* 25 MG PO SCH (08:38)
[2019-08-19] MEDS: Lisinopril TAB* 10 MG PO SCH ×2 (08:40→20:23)
[2019-08-19] MEDS: PARoxetine HCL TAB* 40 MG PO SCH (08:40)
[2019-08-19] MEDS: Vitamin THERAPEUTIC TAB PO SCH (08:41)
[2019-08-19] MEDS: Lithium Carbonate CAP 150 MG ** CAPSULE PO SCH ×2 (08:42→20:23)
[2019-08-19] MEDS: Calcium/Vitamin D TAB 250/125* TAB PO SCH ×2 (08:42→17:02)
[2019-08-19] MEDS: Aspirin 81 mg CHEW TAB* 81 MG TAB.CHEW PO SCH (08:42)
[2019-08-19] MEDS: Hydrochlorothiazide TAB* 25 MG PO SCH (08:42)
[2019-08-19] MEDS ORDERED: lamoTRIgine TAB(*) 25 MG PO SCH (09:00)
--- NOTE | 2019-08-19 10:32 | PN ---
Subjective - Subjective Date of Service: 08/19/19 Service Type: 42217 Hosp care 35 min high complexity Subjective: Nursing Report: Patient was visible on unit, no behavioral incidents. Slept overnight. Attending group activities. CC: "I am doing better This patient was seen and evaluated today. She is interacting with peers. Patient asked if her daughter brought her clothing. She reported having adequate appetite and sleep. The patient reports attending day groups. Per nursing no behavioral issues or overnight events reported. Patient reported that she is tolerating medications without side effects. Patient denied chest pain, shortness of breath, tremors, seizures, skin changes. Objective - General Observations Appearance: Neat Appears Stated Age: Yes Stature: WNL Posture: WNL Eye Contact: Average Behavior/Activity: WNL - Interaction Observations Attitude Towards Examiner: Cooperative Stated Mood: Dysphoric Affect: Restricted Speech Pattern/Tone: Normal Volume Thought Process: Coherent Perception: WNL Thought Content: Self-Deprecatory Hallucination Type: Denies Delusion Type: Denies - Cognitive Function Orientation: A&O x 4 - Medication Compliance Cooperative with Inpatient Medication Regimen: Yes - Group Participation Participates in Group Activities: Yes Assessment - Assessment Merits Inpatient Hospitalization: For Immediate Safety Clinical Impression: 68 year old Female with a history of Bipolar I disorder with a recent interrupted suicide attempt currently being treated on the BSU. Plan - Plan Treatment Plan: Name: SABINA GUILLEN Birthdate: 1950 [id number] #Q30 minute observation with staff pass # The patient requires psychiatric inpatient admission at this time to assure safety, receive treatment and work toward stabilization. # EKG ordered and reviewed # Obtained collateral information from her daughter who confirmed no access to firearms. # Collaboration with [employer] Dhara Horan # Neurology evaluated the patient and appreciate recommendations - Keppra was discontinued # Medicine was consulted and evaluated the patient- appreciate recommendations - levothyroxine increased to 200mcg # MRI findings show no acute intracranial pathology # Increase lithium 300mg BID # Ordered lithium level Saturday AM # Admission [place] level < 0.10 # Decrease lamotrogine to 25mg daily and discontinue # Patient was stabilized on lithium for 30 years. Patient is on other medications that can increase risk for lithium toxicity. Will this consideration will restart lithium and plan to monitor levels, encourage hydration. Patient and patients family in agreement with the plan. Tobacco use disorder: nicotine supplement offered and put in place. Tentative Discharge: Saturday Vital Signs Temp Pulse Resp BP Pulse Ox 97.6 F 74 18 137/63 97 08/19/19 08:00 08/19/19 08:00 08/19/19 08:00 08/19/19 08:00 08/19/19 08:00 Continued Medication Management: Continue Outpt Medication Medications: Current Medications Acetaminophen (Tylenol Tab*) 650 mg PO Q6H PRN PRN Reason: PAIN - MILD Last Admin: 08/19/19 06:08 Dose: 650 mg Al Hydrox/Mg Hydrox/Simethicone (Maalox Plus*) 30 ml PO Q4H PRN PRN Reason: INDIGESTION Albuterol (Ventolin Hfa Inhaler*) 2 puff INH Q4H PRN PRN Reason: SOB/WHEEZING Aspirin (Aspirin 81 Mg Chew Tab*) 81 mg PO DAILY [facility] Last Admin: 08/19/19 08:42 Dose: 81 mg Calcium/Vitamin D (Oscal D Tab 250/125*) 1 tab PO TID [facility] Last Admin: 08/19/19 08:42 Dose: 1 tab Cyanocobalamin (Vitamin B12 Tab*) 1,000 mcg PO DAILY [facility] Diclofenac Sodium (Voltaren Ec Tab*) 75 mg PO 0730 [facility] Last Admin: 08/19/19 08:38 Dose: 75 mg Hydrochlorothiazide (Hydrodiuril Tab*) 12.5 mg PO QAM [facility] Last Admin: 08/19/19 08:42 Dose: 12.5 mg Lamotrigine (Lamictal Tab(*)) 25 mg PO DAILY [facility] Last Admin: 08/19/19 08:41 Dose: 25 mg Levothyroxine Sodium (Synthroid Tab*) 200 mcg PO 0600 [facility] Last Admin: 08/19/19 06:07 Dose: 200 mcg Lisinopril (Prinivil Tab*) 20 mg PO BID [facility] Last Admin: 08/19/19 08:40 Dose: 20 mg Brocket Carbonate (Brocket Carbonate Cap) 150 mg PO BID [facility] Last Admin: 08/19/19 08:42 Dose: 150 mg Multivitamins (Theragran Tab*) 1 tab PO DAILY [facility] Last Admin: 08/19/19 08:41 Dose: 1 tab Nicotine Polacrilex (Nicotine Lozenge Mini) 4 mg MT Q2H PRN PRN Reason: CRAVING Paroxetine HCl (Paxil Tab*) 40 mg PO [facility] Last Admin: 08/19/19 08:40 Dose: 40 mg - Discharge Plan Discharge Plan: Inpatient Hospitalization
[2019-08-19] MEDS: Cyanocobalamin TAB* 500 MCG PO SCH (11:07)
--- NOTE | 2019-08-19 14:36 | PN ---
Subjective Date of Service: 08/19/19 Interval History: Patient is doing well today. Patient feels as if her mood has improved. Patient has no weakness, palpitations, CP, SOB, F/C, N/V, abnormal movements, or other pain. Patient is anxious to go home. Family History: Unchanged from Admission Social History: Unchanged from Admission Past Medical History: Unchanged from Admission Objective Active Medications: Acetaminophen (Tylenol Tab*) 650 mg PO Q6H PRN PRN Reason: PAIN - MILD Last Admin: 08/19/19 06:08 Dose: 650 mg Al Hydrox/Mg Hydrox/Simethicone (Maalox Plus*) 30 ml PO Q4H PRN PRN Reason: INDIGESTION Albuterol (Ventolin Hfa Inhaler*) 2 puff INH Q4H PRN PRN Reason: SOB/WHEEZING Aspirin (Aspirin 81 Mg Chew Tab*) 81 mg PO DAILY [facility] Last Admin: 08/19/19 08:42 Dose: 81 mg Calcium/Vitamin D (Oscal D Tab 250/125*) 1 tab PO TID [facility] Last Admin: 08/19/19 08:42 Dose: 1 tab Cyanocobalamin (Vitamin B12 Tab*) 1,000 mcg PO DAILY [facility] Last Admin: 08/19/19 11:07 Dose: 1,000 mcg Diclofenac Sodium (Voltaren Ec Tab*) 75 mg PO 0730 [facility] Last Admin: 08/19/19 08:38 Dose: 75 mg Hydrochlorothiazide (Hydrodiuril Tab*) 12.5 mg PO QAM [facility] Last Admin: 08/19/19 08:42 Dose: 12.5 mg Levothyroxine Sodium (Synthroid Tab*) 200 mcg PO 0600 [facility] Last Admin: 08/19/19 06:07 Dose: 200 mcg Lisinopril (Prinivil Tab*) 20 mg PO BID [facility] Last Admin: 08/19/19 08:40 Dose: 20 mg [place] Carbonate ([place] Carbonate Cap) 300 mg PO BID [facility] Multivitamins (Theragran Tab*) 1 tab PO DAILY [facility] Last Admin: 08/19/19 08:41 Dose: 1 tab Nicotine Polacrilex (Nicotine Lozenge Mini) 4 mg MT Q2H PRN PRN Reason: CRAVING Paroxetine HCl (Paxil Tab*) 40 mg PO QAM [facility] Last Admin: 08/19/19 08:40 Dose: 40 mg Vital Signs - 8 hr 08/19/19 08:00 Temperature 97.6 F Pulse Rate 74 Respiratory 18 Rate Blood Pressure 137/63 (mmHg) O2 Sat by Pulse 97 Oximetry Oxygen Devices in Use Now: None Appearance: Patient is a 68yo female who appears stated age and is sitting in the bed in NAD. Eyes: No Scleral Icterus, PERRLA Ears/Nose/Mouth/Throat: NL Teeth, Lips, Gums, Clear Oropharnyx, Mucous Membranes Moist Neck: NL Appearance and Movements; NL JVP, Trachea Midline Respiratory: Symmetrical Chest Expansion and Respiratory Effort, Clear to Auscultation Cardiovascular: NL Sounds; No Murmurs; No JVD, RRR, No Edema Neurological: Alert and Oriented x 3, NL Gait Result Diagrams: 08/16/19 23:51 08/16/19 23:51 Microbiology and Other Data: Microbiology 08/16/19 23:40 Urine Culture - Final Urine Assess/Plan/Problems-Billing Assessment: Patient is a 68yo female with a PMH for HTN, Bipolar, recent severe HTN with seizure and brief cardiac arrest. Patient is now admitted to [facility] for SI and is doing well. - Patient Problems (1) HTN (hypertension) Current Visit: Yes Status: Acute Code(s): I10 - ESSENTIAL (PRIMARY) HYPERTENSION SNOMED Code(s): 83173222 Comment: - Recent severe HTN likely causing seizures - Now generally normotensive, continue HCTZ and Lisinopril - No symptoms (2) Seizures Current Visit: Yes Status: Acute Code(s): R56.9 - UNSPECIFIED CONVULSIONS SNOMED Code(s): 62238493 Comment: - Appreciate Neuro input - Continue Lamictal, stop Keppra - Check levels. - No underlying brain parenchymal pathology (3) Bipolar 1 disorder Current Visit: Yes Status: Acute Code(s): F31.9 - BIPOLAR DISORDER, UNSPECIFIED SNOMED Code(s): 422737647 Comment: - Admitted to [facility] for SI - Continue Lamictal, [place] - Euthymic today. (4) Cardiac arrest Current Visit: Yes Status: Acute Code(s): I46.9 - CARDIAC ARREST, CAUSE UNSPECIFIED SNOMED Code(s): 346100454 Comment: - Likely due to SUDEP - Continue ASA (5) Full code status Current Visit: Yes Status: Acute Code(s): Z78.9 - OTHER SPECIFIED HEALTH STATUS SNOMED Code(s): 700941470 (6) DVT prophylaxis Current Visit: Yes Status: Acute Code(s): Z29.9 - ENCOUNTER FOR PROPHYLACTIC MEASURES, UNSPECIFIED SNOMED Code(s): 494783688 Comment: - Ambulation Status and Disposition: [facility] inpatient.
--- NOTE | 2019-08-19 15:32 | EEG ---
ELECTROENCEPHALOGRAPHY: DATE OF STUDY: 08/19/19 DATE READ: 08/19/19 CLINICAL PROBLEM: Ms. Ashlee Woodward is a 68-year-old female who recently had hypertensive encephalo franco causing a seizure and subsequently causing PEA arrest. She coded for approximately 2 minutes. She was resuscitated. Following that episode, the patient was placed on Keppra. She had a suicidal ideation and attempt a week after starting levetiracetam. This EEG was obtained to evaluate for epil eptiform abnormalities and to see if she needs any further antiseizure medications. Please note that we discontinued the levetiracetam on 08/18/19. MEDICATIONS: 1. Lisinopril. 2. [place]. 3. Levothyroxine. 4. Voltaren. 5. Aspirin. 6. B12. 7. Hydrochlorothiazide. 8. Paxil. 9. Lamotrigine. DURATION OF THE RECORDIN to 1405. CLINICAL STATE: Awake. REPORT: The waking background showed appropriate organization with clearly defined anterior-posterio r voltage and frequency gradients. There was a well-defined posterior dominant rhythm of 9 Hz, which was symmetrical and showed normal reactivity. There was an expected pattern of lower voltage, irreg ular, mixed faster frequencies. Hyperventilation and photic stimulation were not performed. Single e lectrode EKG showed normal sinus rhythm with a rate of 75 beats per minute. Throughout the recording, there were no epileptiform discharges or electrographic seizures. CLINICAL IMPRESSION: This is a normal awake EEG with no epileptiform or focal abnormalities. [id number]/[facility] #: [id number]
[2019-08-20] MEDS: Nicotine Lozenge* mini 2 MG LOZNG.MINI MT PRN ×6 (03:54→18:40)
[2019-08-20] MEDS: Levothyroxine TAB* 100 MCG TAB PO SCH (05:56)
[2019-08-20] MEDS: Diclofenac Sodium EC TAB* 25 MG PO SCH (09:07)
[2019-08-20] MEDS: PARoxetine HCL TAB* 40 MG PO SCH (09:08)
[2019-08-20] MEDS: Aspirin 81 mg CHEW TAB* 81 MG TAB.CHEW PO SCH (09:08)
[2019-08-20] MEDS: Lithium Carbonate CAP 150 MG ** CAPSULE PO SCH ×2 (09:08→20:21)
[2019-08-20] MEDS: Vitamin THERAPEUTIC TAB PO SCH (09:08)
[2019-08-20] MEDS: Cyanocobalamin TAB* 500 MCG PO SCH (09:09)
[2019-08-20] MEDS: Lisinopril TAB* 10 MG PO SCH ×2 (09:09→20:21)
[2019-08-20] MEDS: Hydrochlorothiazide TAB* 25 MG PO SCH (09:10)
--- NOTE | 2019-08-20 11:09 | PN ---
Subjective - Subjective Date of Service: 08/20/19 Service Type: [id number] Hosp care 35 min high complexity Subjective: Nursing Report: Patient was visible on unit, no behavioral incidents. Poor sleep overnight CC: "I am looking forward to discharge This patient was seen and evaluated today. She reported she feels safe on the unit and is interacting with peers. She reported having poor sleep overnight. She reported having adequate appetite and ate breakfast this morning The patient reported attending some of day groups. Per nursing no behavioral issues or overnight events reported. Patient reported that she is tolerating medications without side effects. Objective - General Observations Appearance: Neat Appears Stated Age: Yes Stature: WNL Posture: WNL Eye Contact: Average Behavior/Activity: WNL - Interaction Observations Attitude Towards Examiner: Cooperative Stated Mood: Anxious Affect: Restricted Speech Pattern/Tone: Appropriate, Normal Volume Thought Process: Coherent, [place] Perception: WNL Thought Content: WNL Hallucination Type: Denies Delusion Type: Denies - Cognitive Function Orientation: A&O x 4 Level of Consciousness: Awake - Medication Compliance Cooperative with Inpatient Medication Regimen: Yes - Group Participation Participates in Group Activities: Yes Assessment - Assessment Merits Inpatient Hospitalization: For Immediate Safety Clinical Impression: 68 year old Female with a history of Bipolar I disorder with a recent interrupted suicide attempt currently being treated on the [facility]. Plan - Plan Treatment Plan: Name: SABINA GUILLEN Birthdate: 1950 [id number] #Q30 minute observation with staff pass # The patient requires psychiatric inpatient admission at this time to assure safety, receive treatment and work toward stabilization. # EKG ordered and reviewed # Obtained collateral information from her daughter who confirmed no access to firearms. # Collaboration with Nanotechnology Technician Dhara Horan # Neurology evaluated the patient and appreciate recommendations - Keppra was discontinued # Medicine was consulted and evaluated the patient- appreciate recommendations - levothyroxine was increased to 200mcg # MRI findings show no acute intracranial pathology # Cobre 300mg BID # Ordered lithium level Saturday AM # Admission Cobre level < 0.10 # D/C lamotrogine # Resume trazodone 50mg qhs for sleep # Since resuscitation a month ago patient has experienced increased forgetfulness most likely due to cerebral anoxia. # Patient was stabilized on lithium for 30 years. Patient is on other medications that can increase risk for lithium toxicity. Given this consideration, will restart lithium and plan to monitor levels, encourage hydration. Patient and patients family in agreement with the plan. Tobacco use disorder: nicotine supplement offered and put in place. Tentative Discharge: Saturday Vital Signs Temp Pulse Resp BP Pulse Ox 97.4 F 80 18 145/67 98 08/20/19 08:00 08/20/19 08:00 08/20/19 10:43 08/20/19 08:00 08/20/19 08:00 Continued Medication Management: Continue Outpt Medication Medications: Current Medications Acetaminophen (Tylenol Tab*) 650 mg PO Q6H PRN PRN Reason: PAIN - MILD Last Admin: 08/19/19 06:08 Dose: 650 mg Al Hydrox/Mg Hydrox/Simethicone (Maalox Plus*) 30 ml PO Q4H PRN PRN Reason: INDIGESTION Albuterol (Ventolin Hfa Inhaler*) 2 puff INH Q4H PRN PRN Reason: SOB/WHEEZING Aspirin (Aspirin 81 Mg Chew Tab*) 81 mg PO DAILY [facility] Last Admin: 08/20/19 09:08 Dose: 81 mg Cyanocobalamin (Vitamin B12 Tab*) 1,000 mcg PO DAILY [facility] Last Admin: 08/20/19 09:09 Dose: 1,000 mcg Diclofenac Sodium (Voltaren Ec Tab*) 75 mg PO 0730 [facility] Last Admin: 08/20/19 09:07 Dose: 75 mg Hydrochlorothiazide (Hydrodiuril Tab*) 12.5 mg PO QAM [facility] Last Admin: 08/20/19 09:10 Dose: 12.5 mg Levothyroxine Sodium (Synthroid Tab*) 200 mcg PO 0600 [facility] Last Admin: 08/20/19 05:56 Dose: 200 mcg Lisinopril (Prinivil Tab*) 20 mg PO BID [facility] Last Admin: 08/20/19 09:09 Dose: 20 mg [place] Carbonate ([place] Carbonate Cap) 300 mg PO BID [facility] Last Admin: 08/20/19 09:08 Dose: 300 mg Multivitamins (Theragran Tab*) 1 tab PO DAILY [facility] Last Admin: 08/20/19 09:08 Dose: 1 tab Nicotine Polacrilex (Nicotine Lozenge Mini) 4 mg MT Q2H PRN PRN Reason: CRAVING Last Admin: 08/20/19 09:13 Dose: 4 mg Paroxetine HCl (Paxil Tab*) 40 mg PO QAM [facility] Last Admin: 08/20/19 09:08 Dose: 40 mg Trazodone HCl (Desyrel Tab*) 50 mg PO BEDTIME [facility] - Discharge Plan Discharge Plan: Inpatient Hospitalization
[2019-08-20 12:44] LABS: Levetiracetam 24.7 mcg/mL
[2019-08-20 12:59] LABS: Lamotrigine 1.6 mcg/mL (2.5 - 15.0)
[2019-08-20] MEDS ORDERED: traZODone TAB* 50 MG TAB PO SCH (21:00)
[2019-08-21] MEDS: Nicotine Lozenge* mini 2 MG LOZNG.MINI MT PRN ×4 (00:58→12:57)
[2019-08-21] MEDS: Acetaminophen TAB* 325 MG PO PRN (03:04)
[2019-08-21] MEDS: Diclofenac Sodium EC TAB* 25 MG PO SCH (07:15)
[2019-08-21] MEDS: Levothyroxine TAB* 100 MCG TAB PO SCH (07:15)
--- NOTE | 2019-08-21 08:34 | DS ---
Subjective - Subjective Service Types: [address] [facility] Day [facility]mt complex over 30 min Discharge Date: 08/21/19 Subjective: CC: " I am ready to go home" Patient looks forward to seeing her daughter. The patient was seen and evaluated before discharge today. The patient reported having adequate appetite and improved sleep overnight. The patient reported participating in some of the day groups. Per nursing no behavioral issues or overnight events reported. Patient reported tolerating medications without side effects. Justification for admission: Immediate Safety. CC " I have bipolar disorder" The patient was brought to [facility] by police after her family called 911 following a suicide attempt where she held a knife to her chest and was interrupted by a family member. She was treated at [facility] and had cardiac arrest was intubated and sent to the ICU and had to be brought back to life. While at [facility] she was found to have hypertensive encephalopathy and had a seizure and was discharged on August 12. When she returned home to live with her daughter and showed changes in her behavior and had a interrupted suicide attempt with a kitchen knife. Her family reported that her lithium levels were found to be high and provider advised that she stop taking lithium for 2 days but she discontinued lithum altogether and started lamotrigine for bipolar disorder on July 30. Since that time the patient has been showing signs of noe. Patient was started on Keppra for having a one time seizure at [facility]. She denied access to firearms or stockpiles of medications. She reported decreased sleep and no changes to her appetite The patient denied homicidal ideation intent or plan. The patient denied auditory and/ or visual hallucinations. Depression She reported feeling depressed with feelings of hopelessness , and worthlessness. She reported interruption of sleep , and decreased concentration. Bipolar She reported having a manic episode recently but is unsure when that was. She describes having a manic episode to be having a lot of energy and moving around a lot. Anxiety Denied having symptoms of anxiety such as having times where heart feels that it is beating out of chest , sweaty palms, or shallow breathing. Denied having uncomfortable or intrusive thoughts. Denied feeling restless, high strung, or worrying too much most of the time. Psychosis Does not endorse hearing things that other people do not hear or seeing things other people do not see. Denied feeling that TV is making references. Denied feeling that people are spying , following , or reading their thoughts. Phobias: Patient denied having excessive fear of a particular thing or situation. Eating disorders: Patient denied having excessive eating habits or feelings of guilt after eating. Denied repeated episodes of self induced vomiting after eating. PTSD Denied flashbacks, nightmares and avoidance of a prior traumatic event. PAST PSYCHIATRIC HISTORY: Prior Diagnosis : Bipolar I disorder History of past Psychiatric Hospitalizations: Last prior psychiatric admission were in 1985, 1986 History of past suicide/homicide attempts : Recent suicide attempt, denied repeated self injurious behavior. Denied history of violence. Outpatient follow-up: Hank JONES [phone] Medications: Past trials of medications include lithium, paxil 40mg daily lamotrigine 25mg BID. Guardianship: None. FAMILY HISTORY: - Suicide: Nephew by suicide. - Mental illness: Nephew Depression - Substance abuse: Mother Alcohol abuse SUBSTANCE ABUSE HISTORY: - EtOH: Denied recent use. Quit at age 24. No associated legal issues, blackouts , seizures, DTs or past hospitalizations due to alcohol. - Tobacco: Smokes 2 ppd - Cannabis: Denied - Heroin: Denied - Cocaine: Denied - Substance abuse treatment: Denied past substance abuse treatment SOCIAL HISTORY: - Denied a history of childhood physical and or sexual abuse Born in [facility] and raised by both parents. 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 Patient is not malodorous, and appears to have fair hygiene and grooming. BEHAVIOR: Cooperative , calm EYE CONTACT: Fair PSYCHOMOTOR ACTIVITY: No psychomotor agitation or retardation. MOVEMENTS: No abnormal movements observed. SPEECH : Normal rate, rhythm, volume and tone. MOOD : "Okay " AFFECT : Type is depressed Range is restricted Mood Congruent THOUGHT PROCESS: thought blocking THOUGHT CONTENT: no delusions, obsessions, phobias or preoccupations. PERCEPTION: No current auditory or visual hallucinations. Doesnt appear to be responding to internal cues. No evidence of depersonalization , de-realization, or illusions SUICIDALITY suicidal ideation HOMICIDALITY Denied homicidal ideation, intent or plan. Insight/judgment: Poor insight and judgment ORIENTATION: Oriented to self, location, and time. Diagnosis on Admission: Bipolar I disorder, current depressive episode Diagnosis on Discharge:Bipolar I disorder recent depressive episode. Tobacco Use disorder. Condition at the time of discharge: At the time of discharge the patient showed improvement of sleep and appetite. The patient was not a danger to self or others. The patient denied suicidal ideation, intent or plan. The patient denied homicidal targets, ideation, intent or plan. This patient participated in psychosocial rehabilitation and gained some insight into problems. The patient gained insight into mental illness, triggers, and treatment. The patient took medication as prescribed. The patient denied side effects of medication and objective signs of side effects were not evident. Therapy Resources were offered to the patient. Patient was given a supply of prescriptions at the time of discharge. The patient plans to attend follow up care with the follow up arrangements that were discussed and put in place. Patient was asked to keep appointments as scheduled, take medication as prescribed, have routine follow up care with their primary care physician and refrain from any use of alcohol or drugs. Objective - General Observations Appearance: Neat Appears Stated Age: Yes Stature: WNL Posture: WNL Eye Contact: Average Behavior/Activity: WNL - Interaction Observations Attitude Towards Examiner: Cooperative Stated Mood: Euthymic Affect: Full Speech Pattern/Tone: Clear, Appropriate, Normal Volume Thought Process: Coherent Perception: WNL Thought Content: WNL Hallucination Type: None Delusion Type: None - Cognitive Function Orientation: A&O x 4 Level of Consciousness: Awake - Medication Compliance Cooperative with Inpatient Medication Regimen: Yes - Group Participation Participates in Group Activities: Yes Treatment Course & Assessment Clinical Course & Impression: Hospital course part A: 68 year old Female with a history of Bipolar I disorder with a recent interrupted suicide attempt currently being treated on the [facility]. Hospital course part B: Labs ordered included CBC, CMP, UDS, TSH, HBA1c, TSH, MRI brain, [place] level, EEG, Toxicology screen, Urine analysis, and lipid profile. Labs were reviewed and vital signs were monitored during the course of admission. EKG ordered and reviewed by hospitalist team. The patient was admitted to the adult behavioral unit and placed on 15 minute check for safety. At a later time the patient was on Q30 minute observation and staff pass privileges. With those limits being extended, the patient was safe on all checks and there were no occurrence of behavioral incidents. The patient did well on the unit and went to groups. The patient maximized the therapeutic value offered by the inpatient psychiatric care environment. The patient had adequate sleep and a regular appetite. The patient tolerated medication changes without side effects. Group therapy and services were offered. The risks, benefits, and alternative treatment options were discussed as well as of the risks of refusing treatment. Treatment associated risks discussed with the patient. After this discussion the patient made an acknowledgement of this understanding. Follow up care appointments were put in place. HBA1c, glucose, and lipid panel was ordered to monitor metabolic status. Monitoring for metabolic changes was reviewed and it was emphasized to the patient to be continued to be monitored upon discharge. The patient was informed not to abruptly stop or start new medications before consulting with a medical professional. The patient showed Improvements since the time of admission which include: a broader range of affect, regular sleep and a decrease in anxiety and depression. The patient expressed their readiness for discharge. The patient denied suicidal and or homicidal ideation intent or plan. Overall, the patient responded well to inpatient treatment as evidenced by their report of strengthening of coping mechanisms, reduced distress, and a more positive outlook on their circumstances. Of note there was an improvement of recognizing how emotional state can effect mood and behavior. Safety precautions were put in place which included involving the patient and their family to closely monitor for changes in mental state. In addition, implementing follow up care, screening for the need to remove/securing firearms , weapons and stockpile of medications. Patient/ family instructed to immediately call 911 should any safety concerns arise. AIMS was performed and insignificant for involuntary movement disorders. The patient was advised of the 24 hour / 7 days a week availability of the emergency room and to call 911 in the event of an emergency such as being suicidal and/ or homicidal. The patient was informed of the contact information for [facility], Suicide Prevention and Crisis Services, National Suicide Prevention Lifeline, [facility], Alcoholics Anonymous, and [facility]. [place] level was 0.66 on discharge and they were advised about the importance of monitoring medication levels after leaving the hospital. Medications started included restarting lithium 300mg BID for mood. Keppra was discontinued and levothyroxine increased to 200mcg. Decreased lamotrogine to 25mg daily and then completely discontinued. MRI brain was ordered and findings show no acute intracranial pathology Patient was stabilized on lithium for 30 years. Patient is on other medications that can increase risk for lithium toxicity. Will this consideration I had a discussion with the patient and her family about risks and benefits of restarting lithium importance of monitoring levels and hydration due to other medications that she is taking increase the risk of increasing lithium toxicity. Nicotine replacement was provided to decrease nicotine cravings. Patient informed of the dangers of smoking and offered nicotine cessation resources and declined. Family was contacted before discharge. Due to COVID precautions visitors were not allowed on the unit. The family confirmed that the patient is at their baseline. At this time both the patient and family are eager for discharge and are in agreement with the discharge plan and can receive care in the less restrictive outpatient setting. They were advised on how the days following discharge can be a vulnerable period and to look out for warning signs associated with decompensation and progression of mental illness. They were notified of the resources available in the event these situations arise and confirmed that the patient has no access to firearms or stockpiles of medications. Her daughter plans to look after her when she returns home. Consults included to hospitalist for medical management and Neurology for recent seizure and brain anoxia. Patient was not assaultive or a behavioral problem during the course of admission. The patient showed good hygiene and was able to carry out activities of daily living. Patient will be discharged to live at home. Follow up appointment with Dipika JONES Patient informed of follow up appointment times. See more details for follow up care in the discharge plan. Risk factors were mitigated by establishing the patients baseline with her family. Implemented precautionary safety measures by confirming no stockpiles of medications and no access to firearms, provided mental health treatment, and therapy groups, stabilization of psychiatric symptoms, provided resources to outpatient services, as well as provided a supportive care environment and therapy resources during the course of hospitalization. A safety plan was created by the patient and this was reviewed with the patient and treatment team. The patient verbalized the steps they would take to ensure their safety in the event of a crisis or they begin to show signs that they have identified when they are not doing well. Risk factors: , Age, , history of a mental health condition, Prior history of a suicide attempt. Chronic health conditions, recent hospitalization. Nephew by suicide. Protective factors: Lives with her daughter, Female, At discharge patient did not have suicidal and or homicidal ideation, intent or plan. Has children. Has family support system. No history of service. Currently no feelings of hopelessness, not in an occupation of social isolation, doesnt have access to firearms. Doesnt have command hallucinations and or psychotic features at this time. No current substance abuse. No current alcohol abuse. Not an anniversary of a loss of a loved one. The patient is currently future orientated. Patient engaged in treatment and compliant with medication. No barriers to seek mental health treatment. Not incarcerated. No history of self- injurious behavior. The patient did not have a cultural belief that supported suicide. Patient did not experience a loss of someone close that recently by suicide. Modifiable risk factors that were addressed include presenting psychiatric symptoms, assessment to lethal means, access to mental health treatment, resources for continued care, assessment and treatment of active psychiatric symptoms. Current Non- modifiable risk factors include recent suicide attempt, history of mental illness, health conditions, age , race , suicide of nephew , relationship status. Sodium 138 mmol/L (135-145) 08/16/19 23:51 Potassium 4.1 mmol/L (3.5-5.0) 08/16/19 23:51 BUN 18 mg/dL (6-24) 08/16/19 23:51 Creatinine 1.04 mg/dL (0.51-0.95) H 08/16/19 23:51 Hemoglobin A1c 5.4 % (4.0-5.6) 08/19/19 08:00 Calcium 11.0 mg/dL (8.6-10.3) H 08/16/19 23:51 AST 14 U/L (13-39) 08/16/19 23:51 ALT 12 U/L (7-52) 08/16/19 23:51 Triglycerides 90 mg/dL 08/19/19 08:00 Cholesterol 206 mg/dL 08/19/19 08:00 LDL Cholesterol 144 mg/dL 08/19/19 08:00 Merits Inpatient Hospitalization: No Clear for Discharge: Adequate Clinical Respons Discharge Planning - Discharge Planning Discharge Plan: Outpatient Follow Up Outpatient Program: Private Clinician(s) Recommendations for Continuing Care: Medication Management, Primary Care Followup Medications: Current Medications Acetaminophen (Tylenol Tab*) 650 mg PO Q6H PRN PRN Reason: PAIN - MILD Last Admin: 08/21/19 03:04 Dose: 650 mg Al Hydrox/Mg Hydrox/Simethicone (Maalox Plus*) 30 ml PO Q4H PRN PRN Reason: INDIGESTION Albuterol (Ventolin Hfa Inhaler*) 2 puff INH Q4H PRN PRN Reason: SOB/WHEEZING Aspirin (Aspirin 81 Mg Chew Tab*) 81 mg PO DAILY [facility] Last Admin: 08/20/19 09:08 Dose: 81 mg Cyanocobalamin (Vitamin B12 Tab*) 1,000 mcg PO DAILY [facility] Last Admin: 08/20/19 09:09 Dose: 1,000 mcg Diclofenac Sodium (Voltaren Ec Tab*) 75 mg PO 0730 [facility] Last Admin: 08/21/19 07:15 Dose: 75 mg Hydrochlorothiazide (Hydrodiuril Tab*) 12.5 mg PO QAM [facility] Last Admin: 08/20/19 09:10 Dose: 12.5 mg Levothyroxine Sodium (Synthroid Tab*) 200 mcg PO 0600 [facility] Last Admin: 08/21/19 07:15 Dose: 200 mcg Lisinopril (Prinivil Tab*) 20 mg PO BID [facility] Last Admin: 08/20/19 20:21 Dose: 20 mg [place] Carbonate ([place] Carbonate Cap) 300 mg PO BID [facility] Last Admin: 08/20/19 20:21 Dose: 300 mg Multivitamins (Theragran Tab*) 1 tab PO DAILY [facility] Last Admin: 08/20/19 09:08 Dose: 1 tab Nicotine Polacrilex (Nicotine Lozenge Mini) 4 mg MT Q2H PRN PRN Reason: CRAVING Last Admin: 08/21/19 03:42 Dose: 4 mg Paroxetine HCl (Paxil Tab*) 40 mg PO QAM [facility] Last Admin: 08/20/19 09:08 Dose: 40 mg Trazodone HCl (Desyrel Tab*) 50 mg PO BEDTIME [facility] Last Admin: 08/20/19 21:09 Dose: 50 mg Discharge Planning: Prescriptions provided for discharge [x] Yes [] No Follow up care details as per social work arrangements. Patient response to discharge plan: [x] eager for discharge [] agreeable with discharge plan [] ambivalent about discharge [] disagrees with discharge today
[2019-08-21 08:52] VITALS: BP 117/57
[2019-08-21] MEDS: Vitamin THERAPEUTIC TAB PO SCH (09:30)
[2019-08-21] MEDS: Cyanocobalamin TAB* 500 MCG PO SCH (09:30)
[2019-08-21] MEDS: Lithium Carbonate CAP 150 MG ** CAPSULE PO SCH (09:31)
[2019-08-21] MEDS: PARoxetine HCL TAB* 40 MG PO SCH (09:31)
[2019-08-21] MEDS: Hydrochlorothiazide TAB* 25 MG PO SCH (09:33)
[2019-08-21] MEDS: Lisinopril TAB* 10 MG PO SCH (09:35)
[2019-08-21] MEDS: Aspirin 81 mg CHEW TAB* 81 MG TAB.CHEW PO SCH (09:36)
== END 2019-08-21 13:00 | disposition home or self-care (01) | DRG 885 ==
LOC: ED 23:04 → BSU 08-17 11:49
PROVIDERS: ADMIT Psychiatry & Neurology Psychiatry; ATTEND Psychiatry & Neurology Psychiatry
PROC: 4A00X4Z Measurement of Central Nervous Electrical Activity, External Approach (ICD-10-PCS; principal; 2019-08-19)
DX: F31.30 Bipolar disorder, current episode depressed, mild or moderate severity, unspecified (principal); R45.851 Suicidal ideations; F17.210 Nicotine dependence, cigarettes, uncomplicated; M19.90 Unspecified osteoarthritis, unspecified site; I10 Essential (primary) hypertension; M81.0 Age-related osteoporosis without current pathological fracture; E03.9 Hypothyroidism, unspecified; J43.9 Emphysema, unspecified; Z85.3 Personal history of malignant neoplasm of breast; Z88.0 Allergy status to penicillin; Z91.5 Personal history of self-harm; Z79.899 Other long term (current) drug therapy; Z79.82 Long term (current) use of aspirin; Z79.890 Hormone replacement therapy
CPT/HCPCS: 36415; 70551; 80053; 80061; 80175; 80177; 80178; 80307; 80320; 80329; 81003; 81015; 82607; 83036; 84439; 84443; 85025; 87086; 93005; 95816; 99222; 99233; 99238; 99284; A9270-GY; G0480; J1200; J1630; J2060